=== PATIENT | female | born 1980 | race African-American/Black ===

== ENCOUNTER 2016-12-06 17:41 | Emergency (ER) | payer OTHER ==
[2016-12-06 17:56] VITALS: BP 140/89; PULSE 108; TEMP 99.4; BMI 37.9
--- NOTE | 2016-12-06 19:46 | PDOC ---
History of Present Illness - General Chief Complaint: Cold Symptoms Stated Complaint: COLD SYMPTOMS Time Seen by Provider: 12/06/16 18:53 History Source: Patient Exam Limitations: No Limitations - History of Present Illness Initial Comments: 12/06/16 19:48 12/06/16 19:51 12/06/16 19:53 Chief complaint: Generalized body aches, nasal congestion, dry cough, nausea and vomiting History of present illness: Patient is a 35-year-old female history of asthma here today with sudden onset of body aches, nasal congestion, dry cough, nausea with 1 episode of vomiting today. Patient reports having also having a fever today. Patient did not have influenza vaccine. Patient has had no known sick contacts. Timing/Duration: getting worse Severity: moderate Associated Symptoms: reports: cough, fever/chills, loss of appetite, nausea/ vomiting, other (bodyaches') Past History - Past Medical History Allergies/Adverse Reactions: Allergies Allergy/AdvReac Type Severity Reaction Status Date / Time No Known Allergies Allergy Verified 12/06/16 17:54 Home Medications: Ambulatory Orders Ondansetron [Zofran Odt -] 4 mg SL Q8H PRN #6 od.tablet 12/06/16 Oseltamivir Phosphate [Tamiflu -] 75 mg PO BID #10 capsule MDD 2 12/06/16 Asthma: Yes - Immunization History Immunization Up to Date: Yes - Psycho/Social/Smoking Cessation Hx Anxiety: No Suicidal Ideation: No Smoking Status: Yes Smoking History: Never smoked Number of Cigarettes Smoked Daily: 0 Information on smoking cessation initiated: No Hx Alcohol Use: No Drug/Substance Use Hx: No Substance Use Type: None Review of Systems - Review of Systems Able to Perform ROS?: Yes Constitutional: Yes: Chills, Fever, Loss of Appetite HEENTM: Yes: Nose Congestion Respiratory: Yes: Cough. No: Shortness of Breath, SOB with Exertion, SOB at Rest, Stridor, Wheezing, Productive cough Cardiac (ROS): No: Symptoms Reported ABD/GI: Yes: Nausea, Vomiting (once today) : No: Symptoms Reported Musculoskeletal: Yes: Other (bodyaches) Integumentary: No: Symptoms Reported Neurological: No: Symptoms reported *Physical Exam - Vital Signs Last Vital Signs Temp Pulse Resp BP Pulse Ox 99.4 F 108 H 18 140/89 99 12/06/16 17:52 12/06/16 17:52 12/06/16 17:52 12/06/16 17:52 12/06/16 17:52 - Physical Exam General Appearance: Yes: Appropriately Dressed HEENT: positive: TMs Normal, Nasal Congestion, Rhinorrhea (clear b/l ). negative: Pharyngeal Erythema, Tonsillar Exudate, Tonsillar Erythema Neck: negative: Lymphadenopathy (R), Lymphadenopathy (L) Respiratory/Chest: positive: Lungs Clear, Normal Breath Sounds. negative: Chest Tender, Respiratory Distress Cardiovascular: positive: Regular Rhythm, Regular Rate, S1, S2 Gastrointestinal/Abdominal: positive: Normal Bowel Sounds, Tender, Soft. negative: Organomegaly, Distended, Guarding, Rebound, Tenderness Integumentary: positive: Normal Color Neurologic: positive: Fully Oriented, Alert, Normal Response, Responsive Medical Decision Making - Medical Decision Making 12/06/16 19:55 Patient is a 35-year-old female history of asthma here today with sudden onset of body aches, nasal congestion, dry cough, nausea with 1 episode of vomiting today. Patient reports having also having a fever today. Patient did not have influenza vaccine. Patient has had no known sick contacts. Influenza-like illness Plan: Acetaminophen 1 g by mouth now Tamiflu 75 mg bid for 5 days 12/06/16 19:58 zofran 4 mg SL q 8 hr prn nausea or vomiting *DC/Admit/Observation/Transfer Diagnosis at time of Disposition: Influenza-like illness - Discharge Dispostion Disposition: HOME Condition at time of disposition: Stable - Patient Instructions Additional Instructions: Drink a lot of fluids and rest take ibuprofen as directed and alternate with acetaminophen as directed for body aches and fever do not take at same time Return to emergency room only if symptoms worsen or any difficulty breathing or inability to keep down any fluids Patient voiced understanding of discharge instructions and all questions were answered - Post Discharge Activity Work/School Note: Back to Work
[2016-12-06] MEDS ORDERED: ACETAMINOPHEN 500 MG TABLET (FP) PO ONE (19:51)
[2016-12-06] MEDS ORDERED: ACETAMINOPHEN 500 MG TABLET (FP) ONE (19:52)
== END 2016-12-06 20:03 | disposition home or self-care (01) ==
LOC: JERFT 17:41
DX: J11.1 Influenza due to unidentified influenza virus with other respiratory manifestations (principal); J45.909 Unspecified asthma, uncomplicated
CPT/HCPCS: 99281-25

== ENCOUNTER 2017-05-17 23:21 | Emergency (ER) | payer OTHER ==
--- NOTE | 2017-05-17 23:23 | PDOC ---
History of Present Illness - General Chief Complaint: Vaginal Sxs Stated Complaint: VAG DISCHARGE Time Seen by Provider: 05/17/17 23:23 History Source: Patient Exam Limitations: No Limitations - History of Present Illness Initial Comments: 05/17/17 23:37 This is a 36-year-old female who comes in complaining of vaginal discharge, foul order and lower pelvic pain. Patient has a history of an STD in the past many years ago. Patient is sexually active does not use protection and has not had sex within the last several weeks. Patient denies any nausea, vomiting, fever, chills or any other complaints. PAST MEDICAL HISTORY: As per history of present illness PAST SURGICAL HISTORY: no significant history FAMILY HISTORY: no pertinant history SOCIAL HISTORY: Pt lives with family and is employed. MEDICATIONS: reviewed ALLERGIES: As per nursing notes Review of Systems General: No fevers or chills, no weakness, no weight loss HEENT: No change in vision. No sore throat,. No ear pain CardioVascular: No chest pain or shortness of breath Respiratory:No cough, or wheezing. Gastrointestinal: no nausea, vomitting, diarrhea or constipation, No rectal bleeding Genitourinary: No dysuria, hematuria, or frequency Musculoskeletal: No joint or muscle pain or swelling Neurologic: No headache, vertigo, dizziness or loss of consciousness Psychiatric: nor depression Skin: No rashes or easy bruising Endocrine: no increased thirst or abnormal weight change Allergic: no skin or latex allergy All other systems reviewed and normal Exam: General: Well-nourished well-developed individual, no acute distress HEENT: Throat: Normal, tonsils normal, no erythema or exudate Neck: Supple, no meningeal signs, no lymphadenopathy Eyes::Pupils equal reactive and round, extraocular motion intact Abdomen: Soft, nondistended, normal bowel sounds, nontender to palpation diffusely : There is a moderate amount of yellowish discharge vaginally from the cervix. There is some mild cervical motion tenderness with bilateral adnexal tenderness. There is no adnexal masses Extremities: Warm, dry, no cyanosis, clubbing, or edema Skin: No rashes Neuro: Alert and oriented x3, nonfocal exam, grossly intact, normal gait Psych: Normal mood and affect Assessment and plan: This is a 36-year-old female comes in complaining of vaginal discharge and foul odor. Patient examined as positive for a yellowish discharge with some cervical motion tenderness. Patient treated for presumptive STDs. HIV test and syphilis test were also sent and are pending. Patient discharged home will follow-up with her OB. 05/18/17 00:54 Past History - Past Medical History Allergies/Adverse Reactions: Allergies Allergy/AdvReac Type Severity Reaction Status Date / Time No Known Allergies Allergy Verified 12/06/16 17:54 Home Medications: Ambulatory Orders Famotidine [Heartburn Prevention] 20 mg PO DAILY 05/17/17 Metformin HCl 500 mg PO BID 05/17/17 Asthma: Yes - Immunization History Immunization Up to Date: Yes - Psycho/Social/Smoking Cessation Hx Anxiety: No Suicidal Ideation: No Smoking Status: Yes Smoking History: Never smoked Number of Cigarettes Smoked Daily: 0 Hx Alcohol Use: No Drug/Substance Use Hx: No Substance Use Type: None *DC/Admit/Observation/Transfer Diagnosis at time of Disposition: Sexually transmitted disease - Discharge Dispostion Disposition: HOME Condition at time of disposition: Stable Admit: No - Patient Instructions Additional Instructions: You have been fully treated for chlamydia and gonorrhea, test for HIV and syphilis as well as are still pending. If any of them come back positive we will call you in that you know. In addition to that if your test for Chlamydia or gonorrhea come back positive your partner will need to be treated before you resume sexual relations. Return to the emergency department immediately with ANY new, persistent or worsening symptoms. Continue any medications as previously prescribed by your physician. You should follow up with your primary doctor as soon as possible regarding today's emergency department visit. . Please make sure your doctor reviews the results of your emergency evaluation. Thank you for coming to the Emergency Department today for your care. It was a pleasure to see you today. Please note that your evaluation is INCOMPLETE until you follow-up with your doctor.
[2017-05-17 23:26] VITALS: BP 128/86; PULSE 78; TEMP 98.6; BMI 38.2
[2017-05-17] MEDS ORDERED: AZITHROMYCIN 1 GM PACKET PO ONE (23:42)
[2017-05-17] MEDS ORDERED: AZITHROMYCIN 250 MG TABLET (FP) ONE (23:57)
[2017-05-18 02:36] LABS: HIV 1 & 2 AB NEGATIVE; HIV 1 AGp24 NEGATIVE
--- NOTE | 2017-05-24 16:03 | PDOC ---
Patient Follow-up (Call Back) - Post ED Follow - Up Condition at time of discharge: Stable Disposition at time of original discharge: HOME - Disposition Additional Instructions/Notes: I received a call from the lab that the chlamydia test was not collected correctly. They requested new sample to be sent. I contacted patient and stated that they were unable to run the test, requested that she return to give a new urine specimen. She verbalized understanding.
== END 2017-05-18 01:03 | disposition home or self-care (01) ==
LOC: FER 23:21
DX: A64 Unspecified sexually transmitted disease (principal); J45.909 Unspecified asthma, uncomplicated; Z79.84 Long term (current) use of oral hypoglycemic drugs
CPT/HCPCS: 36415; 84703; 86593; 87389; 87491; 87591; 96372; 99281-25

== ENCOUNTER 2017-06-01 23:38 | Emergency (ER) | payer OTHER ==
--- NOTE | 2017-06-01 23:41 | PDOC ---
History of Present Illness - General Chief Complaint: Urinary Problem Stated Complaint: URINARY SYMPTOMS Time Seen by Provider: 06/01/17 23:40 History Source: Patient Exam Limitations: No Limitations - History of Present Illness Initial Comments: 06/01/17 23:59 This is a 36-year-old female who was seen by me approximately 2 weeks ago for presumptive STDs. Patient was treated for chlamydia and gonorrhea and RPR and the HIV tests were sent. Patient's test came back negative for RPR and HIV. However her chlamydia and gonorrhea tests were canceled secondary to problems with specimen processing. Patient denies having any sexual relations since being treated for chlamydia and gonorrhea however patient said that her symptoms resolved and then she has now developed a quite vaginal discharge. PAST MEDICAL HISTORY: no significant history PAST SURGICAL HISTORY: no significant history FAMILY HISTORY: no pertinant history SOCIAL HISTORY: Pt lives with family and is employed. MEDICATIONS: reviewed ALLERGIES: As per nursing notes Review of Systems General: No fevers or chills, no weakness, no weight loss HEENT: No change in vision. No sore throat,. No ear pain CardioVascular: No chest pain or shortness of breath Respiratory:No cough, or wheezing. Gastrointestinal: no nausea, vomitting, diarrhea or constipation, No rectal bleeding Genitourinary: No dysuria, hematuria, or frequency Musculoskeletal: No joint or muscle pain or swelling Neurologic: No headache, vertigo, dizziness or loss of consciousness Psychiatric: nor depression Skin: No rashes or easy bruising Endocrine: no increased thirst or abnormal weight change Allergic: no skin or latex allergy All other systems reviewed and normal GENERAL: The patient is awake, alert, and fully oriented, in no acute distress. HEAD: Normal with no signs of trauma. EYES: Pupils equal, round and reactive to light, extraocular movements intact, sclera anicteric, conjunctiva clear. EXTREMITIES: Normal range of motion, no edema. NEUROLOGICAL: Normal speech, normal gait. exam: There is a thick white discharge vaginally. There is no cervical motion tenderness there is no adnexal tenderness. PSYCH: Normal mood, normal affect. SKIN: Warm, Dry, normal turgor, no rashes or lesions noted. Assessment and plan: This is a 36-year-old female who comes in complaining of vaginal discharge after being treated with antibiotics for presumptive STDs. Patient discharges consistent with yeast vaginitis. Patient given Diflucan and told to follow-up with her OB if symptoms are not resolved in 3-4 days. Past History - Past Medical History Allergies/Adverse Reactions: Allergies Allergy/AdvReac Type Severity Reaction Status Date / Time No Known Allergies Allergy Verified 12/06/16 17:54 Home Medications: Ambulatory Orders Famotidine [Heartburn Prevention] 20 mg PO DAILY 05/17/17 Asthma: Yes Diabetes: Yes GI Disorders: Yes - Surgical History Abdominal Surgery: Yes (GASTRIC SLEEVE) - Immunization History Immunization Up to Date: Yes - Psycho/Social/Smoking Cessation Hx Anxiety: No Suicidal Ideation: No Smoking Status: Yes Smoking History: Never smoked Number of Cigarettes Smoked Daily: 0 Hx Alcohol Use: No Drug/Substance Use Hx: No Substance Use Type: None *DC/Admit/Observation/Transfer Diagnosis at time of Disposition: Yeast infection of the vagina - Discharge Dispostion Disposition: HOME Condition at time of disposition: Stable Admit: No - Patient Instructions Additional Instructions: You were given medication here in the emergency room to treat a yeast infection. Your symptoms should resolve within 3-4 days if you still have any symptoms after 3-4 days follow-up with [facility] or her credit and collections analyst. Return to the emergency department immediately with ANY new, persistent or worsening symptoms. Continue any medications as previously prescribed by your physician. You should follow up with your primary doctor as soon as possible regarding today's emergency department visit. . Please make sure your doctor reviews the results of your emergency evaluation. Thank you for coming to the Emergency Department today for your care. It was a pleasure to see you today. Please note that your evaluation is INCOMPLETE until you follow-up with your doctor.
[2017-06-01 23:48] VITALS: BP 124/98; PULSE 69; TEMP 98.5; BMI 38.2
[2017-06-01] MEDS ORDERED: FLUCONAZOLE 100 MG TABLET (UD) PO ONE (23:56)
[2017-06-01] MEDS ORDERED: FLUCONAZOLE 150 MG TABLET PO ONE (23:57)
[2017-06-01] MEDS ORDERED: FLUCONAZOLE 50 MG TABLET PO ONE (23:57)
== END 2017-06-02 00:02 | disposition home or self-care (01) ==
LOC: FER 23:38
DX: B37.3 Candidiasis of vulva and vagina (principal); Z98.84 Bariatric surgery status; J45.909 Unspecified asthma, uncomplicated; E11.9 Type 2 diabetes mellitus without complications; K92.9 Disease of digestive system, unspecified
CPT/HCPCS: 99281-25

== ENCOUNTER 2017-09-07 02:21 | Emergency (ER) | payer OTHER ==
[2017-09-07 02:30] VITALS: BP 152/99; PULSE 62; TEMP 97.7; BMI 38.2
--- NOTE | 2017-09-07 02:35 | PDOC ---
History of Present Illness - General Chief Complaint: Eye Problem Stated Complaint: LT EYE SWELLING/ITCHING Time Seen by Provider: 09/07/17 02:34 - History of Present Illness Initial Comments: This 36-year-old woman presents with 1 day history of left upper eyelid swelling and pain. She states that she awakened yesterday with crusting of her upper eyelid lashes. She is gently washed the crusting off and noticed some swelling/redness of the upper eyelid. Throughout the day, this inflammation continued. She applied warm compresses to the upper eyelid but pain continued. She also notes some blurring of her vision. No previous history of eye issues (specifically she denies previous blepharitis or hordeolum). The patient has not had any inflammation/pain of the lower eyelid of the left eye or either eyelid of the right eye. She does use eye makeup but has not shared makeup/brushes with anyone and has not used any new product. Past History - Past Medical History Allergies/Adverse Reactions: Allergies Allergy/AdvReac Type Severity Reaction Status Date / Time No Known Allergies Allergy Verified 12/06/16 17:54 Home Medications: Ambulatory Orders Erythromycin 0.5% Eye Ointment [Erythromycin 0.5% Eye Ointment -] 1 applic OS TID #1 tube 09/07/17 Asthma: Yes Diabetes: Yes GI Disorders: Yes - Surgical History Abdominal Surgery: Yes (GASTRIC SLEEVE) - Immunization History Immunization Up to Date: Yes - Suicide/Smoking/Psychosocial Hx Smoking Status: Yes Smoking History: Never smoked Number of Cigarettes Smoked Daily: 0 Hx Alcohol Use: No Drug/Substance Use Hx: No Substance Use Type: None Review of Systems - Review of Systems Able to Perform ROS?: Yes Comments:: 12 point review of systems is negative except for what is noted in the history of present illness *Physical Exam - Vital Signs Last Vital Signs Temp Pulse Resp BP Pulse Ox 97.7 F 62 16 152/99 95 09/07/17 02:27 09/07/17 02:27 09/07/17 02:27 09/07/17 02:27 09/07/17 02:27 - Physical Exam Comments: GENERAL: The patient is awake, alert, and fully oriented, in no acute distress. Vital signs as noted. HEAD: Normal with no signs of trauma. EYES: Pupils equal, round and reactive to light, extraocular movements intact, sclera anicteric, conjunctiva clear with no pallor. Right upper and lower eyelids normal Left upper eyelid moderately erythematous/edematous with tenderness of the lateral aspect; no crusting of eyelashes present Upper eyelid gently everted and erythematous/edematous 2 mm mass seen at lateral third, approx 1 mm internal to margin Lower eyelid normal without edema/erythema/tenderness ENT: moist mucous membranes. Ears normal, nares patent, oropharynx clear without exudates. NECK: Normal range of motion, supple without lymphadenopathy, JVD, or masses. Medical Decision Making - Medical Decision Making Clinical presentation most consistent with an internal hordeolum of the lateral aspect of the left upper eyelid. Erythromycin 0.5% ointment applied to the lateral third eyelash margin of the left eye. Patient advised to continue her warm compresses to the upper eyelid. Application of the erythromycin ointment should continue 3 times a day. The patient does not have an bail bond agent : given referral information for Dr. Ordonez/Dr. Norris. She should call the office on Saturday to make an appointment within the next 3-4 days. Patient should not use eye makeup until infection resolved; any eye makeup products that she has now should be discarded and fresh products when her infection is resolved. *DC/Admit/Observation/Transfer Diagnosis at time of Disposition: Internal hordeolum of left eye Qualifiers: Eyelid: upper Qualified Code(s): H00.024 - Hordeolum internum left upper eyelid - Discharge Dispostion Disposition: HOME Condition at time of disposition: Stable - Prescriptions Prescriptions: Erythromycin 0.5% Eye Ointment [Erythromycin 0.5% Eye Ointment -] 1 applic OS TID #1 tube - Referrals Referrals: James Bernstein MD [Primary Care Provider] - Pan Ordonez MD [Staff Physician] - 3 days - Patient Instructions Printed Discharge Instructions: Hordeolum Additional Instructions: Continue warm compresses to left upper eyelid(at least 4 times a day) Erythromycin ointment to left upper eyelashes 3 times a day until seen by eye doctor Can use Motrin/Aleve/Tylenol as needed for pain Follow-up with eye doctor (Dr. Ordonez/Dr. Norris) within the next 3-4 days Return to ER if you have worsening swelling/redness/pain of eyelid
[2017-09-07] MEDS ORDERED: ERYTHROMYCIN 0.5% OPHTHALMIC OINTMENT 3.5 GM TUBE ONE (02:41)
== END 2017-09-07 02:57 | disposition home or self-care (01) ==
LOC: FER 02:21
DX: H00.024 Hordeolum internum left upper eyelid (principal); J45.909 Unspecified asthma, uncomplicated; Z98.84 Bariatric surgery status; E11.9 Type 2 diabetes mellitus without complications
CPT/HCPCS: 99282-25

== ENCOUNTER 2019-01-09 16:39 | Emergency (ER) | payer OTHER ==
[2019-01-09] MEDS ORDERED: DEXAMETHASONE LIQUID 0.5 MG/5 ML 240 ML BULK BOTTLE PO ONE (16:58)
--- NOTE | 2019-01-09 16:58 | PDOC ---
Rapid Medical Evaluation Time Seen by Provider: 01/09/19 16:55 Medical Evaluation: Allergies Allergy/AdvReac Type Severity Reaction Status Date / Time No Known Allergies Allergy Verified 12/06/16 17:54 01/09/19 16:56 I have performed a brief in-person evaluation of this patient. The patient presents with a chief complaint of: Asthm exacerbation x3 days Pertinent physical exam findings: NAD, tight respirations B no wheezing I have ordered the following:duo nebs and decadron The patient will proceed to the ED for further evaluation. Discharge Disposition - Diagnosis Asthma exacerbation - Referrals - Patient Instructions - Post Discharge Activity
[2019-01-09] MEDS ORDERED: DEXAMETHASONE SOD PHOSPHATE 10 MG/1 ML VIAL ONE (17:01)
[2019-01-09] MEDS: ALBUTEROL SO4 2.5/IPRATROPIUM 0.5 INH SOL 3 ML VIAL.NEB. NEB SCH ×4 (17:05→17:58)
[2019-01-09 17:08] VITALS: PULSE 104; TEMP 98; BMI 33.3
[2019-01-09] MEDS ORDERED: ALBUTEROL SO4 2.5/IPRATROPIUM 0.5 INH SOL 3 ML VIAL.NEB. NEB ONE ×3 (17:46→18:17)
[2019-01-09] MEDS ORDERED: CEFTRIAXONE 1 GM in DEXTROSE 5%-WATER - 50 ML IVPB ONE (17:47)
--- NOTE | 2019-01-09 17:53 | PDOC ---
History of Present Illness - General Chief Complaint: Shortness of Breath Stated Complaint: SHORTNESS OF BREATH, ASTMA ATTACK Time Seen by Provider: 01/09/19 16:55 History Source: Patient Exam Limitations: No Limitations - History of Present Illness Initial Comments: 01/09/19 17:53 38-year-old female with history of asthma presents to ED with complaints of wheezing cough and shortness of breath for the past 3 days unrelieved with inhaler. Patient denies chest pain, palpitations, fever, chills recent travel or recent illness. Patient denies hospitalizations or intubations. Timing/Duration: reports: other Severity: reports: mild Possible Cause: Yes: occasional episodes Modifying Factors: improves with: coughing Associated Symptoms: reports: cough, shortness of breath, wheezing Past History - Travel Traveled outside of the country in the last 30 days: No - Past Medical History Allergies/Adverse Reactions: Allergies Allergy/AdvReac Type Severity Reaction Status Date / Time No Known Allergies Allergy Verified 12/06/16 17:54 Home Medications: Ambulatory Orders Albuterol Sulfate Inhaler - [Ventolin Hfa Inhaler -] 1 - 2 inh PO Q4H 01/09/19 Asthma: Yes COPD: No Diabetes: Yes GI Disorders: Yes - Surgical History Abdominal Surgery: Yes (GASTRIC SLEEVE) - Immunization History Immunization Up to Date: Yes - Suicide/Smoking/Psychosocial Hx Smoking Status: Yes Smoking History: Unknown if ever smoked Number of Cigarettes Smoked Daily: 0 Hx Alcohol Use: No Drug/Substance Use Hx: No Substance Use Type: None Patient Lives Alone: No Lives with/in: spouse/SO Review of Systems - Review of Systems Able to Perform ROS?: Yes Constitutional: No: Symptoms Reported HEENTM: No: Symptoms Reported Respiratory: Yes: Cough, Shortness of Breath, Wheezing Cardiac (ROS): No: Symptoms Reported ABD/GI: No: Symptoms Reported : No: Symptoms Reported Musculoskeletal: No: Symptoms Reported Integumentary: No: Symptoms Reported Neurological: No: Symptoms reported Hematologic/Lymphatic: No: Symptoms Reported *Physical Exam - Vital Signs Last Vital Signs Temp Pulse Resp BP Pulse Ox 98 F 104 H 22 H 156/85 99 01/09/19 16:58 01/09/19 16:58 01/09/19 16:58 01/09/19 16:58 01/09/19 16:58 - Physical Exam General Appearance: Yes: Nourished, Appropriately Dressed. No: Apparent Distress HEENT: positive: EOMI, Pharynx Normal. negative: Muffled/Hoarse voice ( speaking full sentences) Neck: positive: Normal Thyroid Respiratory/Chest: positive: Decreased Breath Sounds ( bilateral bases). negative: Respiratory Distress, Accessory Muscle Use, Wheezing Cardiovascular: positive: Regular Rhythm, Tachycardia. negative: Murmur Gastrointestinal/Abdominal: positive: Soft. negative: Tenderness Extremity: positive: Normal Capillary Refill. negative: Pedal Edema Integumentary: positive: Normal Color, Warm, Moist Neurologic: positive: Motor Strength 5/5 (ambulatory) Moderate Sedation - Procedure Monitoring Vital Signs: Procedure Monitoring Vital Signs Temperature 98 F 01/09/19 16:58 Pulse Rate 104 H 01/09/19 16:58 Respiratory Rate 22 H 01/09/19 16:58 Blood Pressure 156/85 01/09/19 16:58 O2 Sat by Pulse Oximetry (%) 99 01/09/19 16:58 ED Treatment Course - Medications Given in the ED: ED Medications Discontinued Medications Generic Name Dose Route Start Last Admin Trade Name Freq PRN Reason Stop Dose Admin Dexamethasone 10 mg 01/09/19 16:58 01/09/19 17:05 Decadron Liquid - PO 01/09/19 16:59 1 ml ONCE ONE Administration Medical Decision Making - Medical Decision Making 01/09/19 17:19 Chief complaint: Wheezing cough and shortness of breath unrelieved with inhaler 2. Patient with history of asthma. No other complaints. Exam. Patient decreased breath sounds at bases with noted dry cough. Plan: Patient given Decadron out in rapid medical evaluation along with 1 DuoNeb prior to my arrival. Patient ordered for 2 additional DuoNeb's and we'll reevaluate. 01/09/19 18:20 Patient now with clear breath sounds to the left lung base . Mild decreased to the right base. Fourth DuoNeb ordered 01/09/19 18:40 Exam shows clear lungs to bases bilaterally. Patient states feeling much better. Will discharge patient home with recommendations to take prednisone starting tomorrow 40 mg 2 days if chest tightness returns with wheezing *DC/Admit/Observation/Transfer Diagnosis at time of Disposition: Asthma exacerbation - Discharge Dispostion Disposition: HOME Condition at time of disposition: Improved - Referrals Referrals: James Bernstein MD [Primary Care Provider] - - Patient Instructions Printed Discharge Instructions: DI for Asthma -- Adult Additional Instructions: Please carry inhaler with you at all times. Please cover mouth and nose when going outside to prevent bronchospasm. Return to ED if symptoms worsen Take prednisone tomorrow if you begin to feel wheezing and chest tightness - Post Discharge Activity
[2019-01-09 18:06] VITALS: BP 0/0
== END 2019-01-09 18:56 | disposition home or self-care (01) ==
LOC: JER 16:39
PROC: 3E0F7GC Introduction of Other Therapeutic Substance into Respiratory Tract, Via Natural or Artificial Opening (ICD-10-PCS; principal; 2019-01-09)
DX: J45.901 Unspecified asthma with (acute) exacerbation (principal)
CPT/HCPCS: 94640; 99282-25